=== PATIENT | female | born 1970 | race Hispanic/Latino ===

== ENCOUNTER 2021-06-13 16:34 | Emergency (ER) | payer SELFPAY ==
[~2021-06-13] VITALS: Ht 157.5 cm; Wt 83.0 kg
[2021-06-13 17:46] LABS: BASOPHILS % (AUTO) 0.4 % (0.0-5.0); EOSINOPHILS % (AUTO) 1.5 % (0.0-8.0); HEMATOCRIT 38.2 % (36-48); LYMPHOCYTES % (AUTO) 26.5 % (21.0-51.0); MEAN CORPUSCULAR HEMOGLOBIN 28.5 pg (27.0-33.0); MEAN CORPUSCULAR HGB CONC 34.3 g/dL (32.0-36.0); MONOCYTES % (AUTO) 6.5 % (3.0-13.0); NEUTROPHILS % (AUTO) 64.4 % (40.0-77.0); PLATELET COUNT (AUTO) 165 K/uL (130-400); RED CELL DISTRIBUTION WIDTH 19.6 % (11.0-15.5); WHITE BLOOD COUNT (AUTO) 4.6 K/uL (4.8-10.8)
[2021-06-13] MEDS ORDERED: ONDANSETRON 4MG INJ IVP ONE (18:00)
[2021-06-13] MEDS ORDERED: MORPHINE 4 MG SYG IM ONE (18:00)
[2021-06-13 18:09] LABS: INR 0.97 (0.85-1.15); PROTHROMBIN TIME 10.6 SEC (9.6-11.6)
[2021-06-13 18:11] LABS: PARTIAL THROMBOPLASTIN TIME 24.8 SEC (26.3-35.5)
[2021-06-13 18:13] LABS: ALBUMIN 4.4 g/dL (3.5-5.0); BILIRUBIN,TOTAL 0.5 mg/dL (0.2-1.0); CREATININE 0.6 mg/dL (0.5-1.5); TOTAL PROTEIN, SERUM 8.7 g/dL (6.0-8.3)
[2021-06-13 18:15] LABS: POTASSIUM 4.1 mmol/L (3.5-5.1)
[2021-06-13] MEDS ORDERED: PANTOPRAZOLE 40 MG/VIAL IVP SCH (18:30)
[2021-06-13 20:10] VITALS: BP 128/72
[2021-06-13 21:24] LABS: APPEARANCE,URINE Clear (CLEAR); BILIRUBIN,URINE Negative (NEGATIVE); COLOR,URINE Yellow (YELLOW); GLUCOSE, URINE (UA) Negative (NEGATIVE); KETONES,URINE Negative (NEGATIVE); LEUKOCYTE ESTERASE ,URINE Negative (NEGATIVE); NITRATE,URINE Negative (NEGATIVE); OCCULT BLOOD,URINE Negative (NEGATIVE); PROTEIN,URINE Negative (NEGATIVE)
[2021-06-13] MEDS ORDERED: DICY20TA2 PO (21:40)
[2021-06-13] MEDS ORDERED: ONDA4TAB10 PO (21:40)
[2021-06-13] MEDS ORDERED: METO-296 PO (21:40)
[2021-06-13] MEDS ORDERED: MELO7.5T12 PO (21:40)
[2021-06-13] MEDS ORDERED: METOCLOPRAMIDE 10 MG/2 ML VIAL ONE (21:47)
[2021-06-13] MEDS ORDERED: KETOROLAC 30MG VIAL (30MG/ML) ONE (21:47)
[2021-06-13] MEDS ORDERED: KETOROLAC 30MG VIAL (30MG/ML) IV ONE (22:00)
[2021-06-13] MEDS ORDERED: METOCLOPRAMIDE 10 MG/2 ML VIAL IVP ONE (22:00)
== END 2021-06-13 22:12 | disposition home or self-care (01) ==
LOC: EDH 16:34
DX: R10.11 Right upper quadrant pain (principal); R10.13 Epigastric pain; R11.0 Nausea; Z79.1 Long term (current) use of non-steroidal anti-inflammatories (NSAID); Z79.899 Other long term (current) drug therapy
CPT/HCPCS: 36415; 76705; 80053; 81003; 82550; 83690; 84484; 85025; 85610; 85730; 93005; 96372; 96374; 96375; 99285; C9113; J1885; J2270; J2405; J2765